=== PATIENT | female | born 1985 | race Caucasian/White ===

== ENCOUNTER 2019-04-21 19:52 | Emergency (ER) | payer SELFPAY ==
[~2019-04-21] VITALS: Ht 170.2 cm; Wt 44.0 kg
[2019-04-21 20:02] VITALS: BP 114/78
== END 2019-04-21 21:25 | disposition left against medical advice (07) ==
LOC: ER 19:52
DX: Z53.21 Procedure and treatment not carried out due to patient leaving prior to being seen by health care provider (principal); F43.10 Post-traumatic stress disorder, unspecified; F45.8 Other somatoform disorders; Z88.1 Allergy status to other antibiotic agents; Z88.8 Allergy status to other drugs, medicaments and biological substances